=== PATIENT | female | born 1975 | race Caucasian/White ===

== ENCOUNTER → 2019-10-15 | Outpatient (CLI) | payer BC ==
--- NOTE | 2019-10-16 16:58 | RADIOLOGY REPORT (SQ) ---
EXAM DESCRIPTION: NM THYROID SCAN AND UPTAKE COMPLETED DATE/TIME: 10/16/2019 10:04 am REASON FOR STUDY: NONTOXIC GOITER E04.9 NONTOXIC GOITER, UNSPECIFIED COMPARISON: None. RADIONUCLIDE AND DOSE: 312 microcuries [id number] The route of agent administration: Oral ADDITIONAL DRUGS AND DOSES: None. TECHNIQUE: Iodine uptake was measured at 4 and 24 hours. Images of the neck were acquired. LIMITATIONS: None. FINDINGS: 4 HOUR UPTAKE RADIO-IODINE: 6.5%. Normal Range of 5-20% [facility] Normal Range of 5-15% [facility] Normal Range of 5-15% [facility] 24 HOUR UPTAKE RADIO-IODINE: 14.8%. Normal Range of 7-35% [facility] Normal Range of 8-35% [facility] Normal Range of 15-30% [facility] SCAN: Homogeneous uptake of the radionuclide throughout both lobes of the gland and isthmus without a reas of increased or decreased activity. Normal size. OTHER: No other significant finding. IMPRESSION: Normal scan. Hypothyroidism. NORMAL UPTAKE OF IODINE. TECHNICAL DOCUMENTATION: JOB ID: [id number] [employer]- All Rights Reserved Reading location - IP/workstation name: [email or web address]
== END ==
LOC: RAD 09:01
DX: E04.9 Nontoxic goiter, unspecified (principal)
CPT/HCPCS: 78014; A9516